=== PATIENT | male | born 1930 | race Caucasian/White ===

== ENCOUNTER 2018-03-13 16:00 | Emergency (ER) | payer OTHER, MEDICARE ==
--- NOTE | 2018-03-13 16:38 | PDOC ---
History of Present Illness - General History Source: Patient Exam Limitations: No Limitations - History of Present Illness Initial Comments: 03/13/18 17:04 The patient is a 87 year old male, with a significant PMH of HTN, who presents to the emergency department with low blood pressure today. The patient states that his physical therapist said his blood pressure was too low and suggested he go to the ER for further evaluation. The patient said he took his blood pressure medication and had breakfast in the morning. The patient notes mild weakness with ambulation and dizziness but denies any falls, trauma or LOC. The patient denies chest pain, shortness of breath and headache. Denies fever, chills, nausea, vomit, diarrhea and constipation. Allergies: NKDA Past surgical history: None reported Social history: None reported PCP: None reported <Ashkan Jimenez - Last Filed: 03/13/18 17:38> <Munir Rivera - Last Filed: 03/13/18 18:07> - General Chief Complaint: Lightheaded Stated Complaint: DIZZY POSSIBLE HYPOTENSION Time Seen by Provider: 03/13/18 16:22 Past History <Ashkan Jimenez - Last Filed: 03/13/18 17:38> - Travel Traveled outside of the country in the last 30 days: No Close contact w/someone who was outside of country & ill: No - Past Medical History Cardiac Disorders: Yes CHF: Yes Diabetes: Yes HTN: Yes Thyroid Disease: Yes Other medical history: CLL - Surgical History Other Surgical History: CABG x2 03/13/18 17:31 <Munir Rivera - Last Filed: 03/13/18 18:07> - Past Medical History Allergies/Adverse Reactions: Allergies Allergy/AdvReac Type Severity Reaction Status Date / Time No Known Allergies Allergy Unverified 03/13/18 16:02 Home Medications: Ambulatory Orders Aspirin 81 mg PO DAILY 03/13/18 Atorvastatin Ca [Lipitor] 40 mg PO DAILY 03/13/18 Brimonidine Tartrate [Alphagan 0.15% -] 1 drop OU HS 03/13/18 Bumetanide [Bumex -] 2 mg PO DAILY 03/13/18 Clopidogrel Bisulfate [Plavix] 75 mg PO DAILY 03/13/18 Dulaglutide [Trulicity] 1.5 mg SQ WEEKLY 03/13/18 Finasteride [Proscar] 5 mg PO DAILY 03/13/18 Levothyroxine [Synthroid -] 150 mcg PO DAILY 03/13/18 Lisinopril 10 mg PO DAILY 03/13/18 Memantine HCl/Donepezil HCl [Namzaric 28 mg-10 mg Capsule] 1 cap PO DAILY Multivitamins [Tab-A-Vit -] 1 tab PO DAILY 03/13/18 Potassium Chloride [Klor-Con 10] 10 meq PO BID 03/13/18 Sitagliptin Phosphate [Januvia] 100 mg PO DAILY 03/13/18 Tamsulosin HCl [Flomax] 0.4 mg PO BID 03/13/18 Review of Systems - Review of Systems Able to Perform ROS?: Yes Constitutional: No: Symptoms Reported, See HPI, Chills, Diaphoresis, Fever, Loss of Appetite, Malaise, Night Sweats, Weakness, Weight Stable, Unintentional Wgt. Loss, Unexplained wgt Loss, Other HEENTM: No: Symptoms Reported, See HPI, Eye Pain, Blurred Vision, Tearing, Recent change in vision, Double Vision, Cataracts, Ear Pain, Ocular Prothesis, Ear Discharge, Nose Pain, Nose Congestion, Tinnitus, Nose Bleeding, Hearing Loss , Throat Pain, Throat Swelling, Mouth Pain, Dental Problems, Difficulty Swallowing, Mouth Swelling, Other Cardiac (ROS): No: Symptoms Reported, See HPI, Chest Pain, Edema, Irregular Heart Rate, Lightheadedness, Palpitations, Syncope, Chest Tightness, Other Neurological: Yes: Weakness, Dizziness <Ahskan Jimenez - Last Filed: 03/13/18 17:38> *Physical Exam - Vital Signs Last Vital Signs Temp Pulse Resp BP Pulse Ox 97.5 F L 80 16 94/50 L 96 03/13/18 16:02 03/13/18 16:55 03/13/18 16:55 03/13/18 16:55 03/13/18 16:55 - Physical Exam General Appearance: Yes: Nourished, Appropriately Dressed, Apparent Distress Respiratory/Chest: positive: Crackles (bilateral) Cardiovascular: negative: Regular Rhythm, Regular Rate, S1, S2, Edema, JVD, Murmur, Bradycardia, Tachycardia, Diastolic Murmur, Systolic Murmur, Gallop/S3, Gallop/S4, Irregularly Irregular, Irregular, Other Gastrointestinal/Abdominal: positive: Distended (slightly ) <Ashkan Jimenez - Last Filed: 03/13/18 17:38> ED Treatment Course - LABORATORY CBC & Chemistry Diagram: 03/13/18 16:54 03/13/18 16:54 <Ashkan Jimenez - Last Filed: 03/13/18 17:38> - LABORATORY CBC & Chemistry Diagram: 03/13/18 16:54 03/13/18 16:54 <Munir Rivera - Last Filed: 03/13/18 18:07> Medical Decision Making - Medical Decision Making 03/13/18 17:[address] Appiah regarding patients case. Agreed to hold the lisinopril and discharge patient. <Ashkan Jimenez - Last Filed: 03/13/18 17:38> *DC/Admit/Observation/Transfer - Attestations Scribe Attestion: 03/13/18 17:09 Documentation prepared by Ashkan Jimenez, acting as medical technologist microbiology for Munir Rivera MD. <Ashkan Jimenez - Last Filed: 03/13/18 17:38> - Discharge Dispostion Decision to Admit order: No <Munir Rivera - Last Filed: 03/13/18 18:07> Diagnosis at time of Disposition: Hypotension Qualifiers: Hypotension type: hypotension due to drug Qualified Code(s): I95.2 - Hypotension due to drugs CHF (congestive heart failure) Qualifiers: Heart failure type: unspecified Heart failure chronicity: unspecified Qualified Code(s): I50.9 - Heart failure, unspecified - Discharge Dispostion Disposition: HOME Condition at time of disposition: Stable - Referrals Referrals: Jennifer Ruiz [Non Staff, Medical] - - Patient Instructions Printed Discharge Instructions: Combating Dizziness in Older Adults Additional Instructions: As discussed with PMD hold on the Lisinopril today , call the PMD in am forward the results of tests done here. Discuss further management of medications with your PMD
[2018-03-13 16:39] VITALS: TEMP 97.5; BMI 32.4
[2018-03-13 17:11] LABS: HEMATOCRIT 30.7 % (35.4-49); HEMOGLOBIN 10.5 GM/dl (11.7-16.9); MCH 30.6 pg (25.7-33.7); MCHC 34.1 g/dl (32.0-35.9); MEAN CELL VOLUME 89.7 fl (80-96); MEAN PLT VOLUME 8.9 fl (7.5-11.1); PLATELET COUNT 176 K/MM3 (134-434); RBC 3.42 M/mm3 (4.00-5.60); RDW 12.7 % (11.9-15.9)
[2018-03-13 17:19] LABS: INR 1.12 (0.82-1.09); PROTHROMBIN TIME (PATIENT) 12.5 SEC (10.2-13.0)
[2018-03-13 17:25] LABS: ALBUMIN 3.9 g/dl (3.5-5.0); ALK PHOS 51 U/L (32-92); ANION GAP 11 MMOL/L (8-16); BILIRUBIN,TOTAL 0.9 mg/dl (0.2-1.0); BLOOD UREA NITROGEN 52 mg/dl (7-18); CALCIUM 8.9 mg/dl (8.4-10.2); CHLORIDE 104 mmol/L (98-107); CO2 21 mmol/L (22-28); CREATININE 2.2 mg/dl (0.6-1.3); GLUCOSE,RANDOM 221 mg/dl (74-106); SGOT/AST 35 U/L (10-42); SGPT/ALT 25 U/L (10-40); SODIUM 136 mmol/L (136-145); TOT PROT 6.7 g/dl (6.4-8.3)
[2018-03-13 17:26] LABS: POTASSIUM 5.2 mmol/L (3.5-5.1)
[2018-03-13 17:31] VITALS: BP 101/47; PULSE 73
[2018-03-13 17:33] LABS: PLATELET ESTIMATE ADEQUATE
--- NOTE | 2018-03-14 09:23 | EKG ---
Test Reason : Blood Pressure : / mmHG Vent. Rate : 077 BPM Atrial Rate : 077 BPM P-R Int : 168 ms QRS Dur : 080 ms QT Int : 380 ms P-R-T Axes : 039 -16 113 degrees QTc Int : 430 ms NORMAL SINUS RHYTHM SEPTAL INFARCT , AGE UNDETERMINED T WAVE ABNORMALITY, CONSIDER LATERAL ISCHEMIA ABNORMAL ECG NO PREVIOUS ECGS AVAILABLE Confirmed by SHABANA WILLIAMSON MD ([id number]) on 03/14/2018 9:22:28 AM Referred By: MD TALAVERA Confirmed By:SHABANA WILLIAMSON MD
== END 2018-03-13 18:20 | disposition home or self-care (01) ==
LOC: FER 16:00
DX: I95.2 Hypotension due to drugs (principal); I50.9 Heart failure, unspecified; E07.9 Disorder of thyroid, unspecified; C91.10 Chronic lymphocytic leukemia of B-cell type not having achieved remission
CPT/HCPCS: 36415; 71045-TC-FY; 80053; 84484; 85025; 85610; 93005; 99285-25

== ENCOUNTER 2018-08-18 21:00 | Emergency (ER) | payer OTHER, MEDICARE ==
[2018-08-18 21:14] VITALS: BP 139/77; PULSE 86; TEMP 97.5; BMI 32.4
--- NOTE | 2018-08-18 21:15 | PDOC ---
History of Present Illness - General History Source: Patient, Family Exam Limitations: No Limitations - History of Present Illness Initial Comments: 08/18/18 21:34 The patient is an 88 year old male with a past medical history of HTN here today for evaluation of abdominal pain and constipation. The patient and patient s daughter reports that he has been trying to have a bowel movement for the past few days but has been unable to. He also reports abdominal pain. Patients daughter reports that he has been eating normally and eats a balanced diet. Patient denies headache, lightheadedness. Denies fever, chills. Denies chest pain, shortness of breath. Denies nausea, vomiting, diarrhea. Allergies: NKA PCP: Jennifer Ruiz <Bill Clark - Last Filed: 08/18/18 21:34> <Edgra Gonzalez - Last Filed: 08/19/18 03:39> - General Chief Complaint: Constipation Stated Complaint: CONSTIPATION Time Seen by Provider: 08/18/18 21:15 Past History <Bill Clark - Last Filed: 08/18/18 21:34> - Past Medical History Cancer: Yes (COLON) Cardiac Disorders: Yes CVA: No COPD: No CHF: Yes Diabetes: Yes HTN: Yes Hypercholesterolemia: Yes Thyroid Disease: Yes - Surgical History Cardiac Surgery: Yes (3 TRIPLE BYPASS,STENTS,COLON RESECTION) - Suicide/Smoking/Psychosocial Hx Smoking History: Former smoker Have you smoked in the past 12 months: No If you are a former smoker, when did you quit?: 1986 Information on smoking cessation initiated: No Hx Alcohol Use: Yes (RARE) Drug/Substance Use Hx: No Substance Use Type: Alcohol <Edgar Gonzalez - Last Filed: 08/19/18 03:39> - Past Medical History Allergies/Adverse Reactions: Allergies Allergy/AdvReac Type Severity Reaction Status Date / Time No Known Allergies Allergy Verified 08/18/18 21:29 Home Medications: Ambulatory Orders Aspirin 81 mg PO DAILY 03/13/18 Atorvastatin Ca [Lipitor] 40 mg PO DAILY 03/13/18 Brimonidine Tartrate [Alphagan 0.15% -] 1 drop OU HS 03/13/18 Bumetanide [Bumex -] 2 mg PO DAILY 03/13/18 Clopidogrel Bisulfate [Plavix] 75 mg PO DAILY 03/13/18 Dulaglutide [Trulicity] 1.5 mg SQ WEEKLY 03/13/18 Finasteride [Proscar] 5 mg PO DAILY 03/13/18 Levothyroxine [Synthroid -] 150 mcg PO DAILY 03/13/18 Memantine HCl/Donepezil HCl [Namzaric 28 mg-10 mg Capsule] 1 cap PO DAILY Multivitamins [Tab-A-Vit -] 1 tab PO DAILY 03/13/18 Potassium Chloride [Klor-Con 10] 10 meq PO BID 03/13/18 Sitagliptin Phosphate [Januvia] 100 mg PO DAILY 03/13/18 Tamsulosin HCl [Flomax] 0.4 mg PO BID 03/13/18 Magnesium Citrate [Citroma -] 195 ml PO DAILY #2 bottle 08/18/18 Review of Systems - Review of Systems Able to Perform ROS?: Yes Comments:: 08/18/18 21:34 GENERAL/CONSTITUTIONAL: No fever or chills. No weakness. HEAD, EYES, EARS, NOSE AND THROAT: No change in vision. No ear pain or discharge. No sore throat. CARDIOVASCULAR: No chest pain or shortness of breath. RESPIRATORY: No cough, wheezing, or hemoptysis. GASTROINTESTINAL: +constipation. +abdominal pain. No nausea, vomiting, diarrhea. GENITOURINARY: No dysuria, frequency, or change in urination. MUSCULOSKELETAL: No joint or muscle swelling or pain. No neck or back pain. SKIN: No rash NEUROLOGIC: No headache, vertigo, loss of consciousness, or change in strength/ sensation. ENDOCRINE: No increased thirst. No abnormal weight change. HEMATOLOGIC/LYMPHATIC: No anemia, easy bleeding, or history of blood clots. ALLERGIC/IMMUNOLOGIC: No hives or skin allergy. <Bill Clark - Last Filed: 08/18/18 21:34> *Physical Exam - Vital Signs Last Vital Signs Temp Pulse Resp BP Pulse Ox 97.5 F L 86 18 139/77 97 08/18/18 21:03 08/18/18 21:03 08/18/18 21:03 08/18/18 21:03 08/18/18 21:03 - Physical Exam Comments: 08/18/18 21:35 GENERAL: Awake, alert, and fully oriented, in no acute distress HEAD: No signs of trauma EYES: PERRLA, EOMI, sclera anicteric, conjunctiva clear ENT: Auricles normal inspection, hearing grossly normal, nares patent, oropharynx clear without exudates. Moist mucosa NECK: Normal ROM, supple, no lymphadenopathy, JVD, or masses LUNGS: Breath sounds equal, clear to auscultation bilaterally. No wheezes, and no crackles HEART: Regular rate and rhythm, normal S1 and S2, no murmurs, rubs or gallops ABDOMEN: +diffuse abdominal tenderness. Soft, normoactive bowel sounds. No guarding, no rebound. No masses EXTREMITIES: Normal range of motion, no edema. No clubbing or cyanosis. No cords, erythema, or tenderness NEUROLOGICAL: Cranial nerves II through XII grossly intact. Normal speech, normal gait SKIN: Warm, Dry, normal turgor, no rashes or lesions noted. <Bill Clark - Last Filed: 08/18/18 21:34> - Vital Signs Last Vital Signs Temp Pulse Resp BP Pulse Ox 97.5 F L 86 18 139/77 97 08/18/18 21:03 08/18/18 21:03 08/18/18 21:03 08/18/18 21:03 08/18/18 21:03 <Edgar Gonzalez - Last Filed: 08/19/18 03:39> Moderate Sedation - Procedure Monitoring Vital Signs: Procedure Monitoring Vital Signs Temperature 97.5 F L 08/18/18 21:03 Pulse Rate 86 08/18/18 21:03 Respiratory Rate 18 08/18/18 21:03 Blood Pressure 139/77 08/18/18 21:03 O2 Sat by Pulse Oximetry (%) 97 08/18/18 21:03 <Bill Clark - Last Filed: 08/18/18 21:34> - Procedure Monitoring Vital Signs: Procedure Monitoring Vital Signs Temperature 97.5 F L 08/18/18 21:03 Pulse Rate 86 08/18/18 21:03 Respiratory Rate 18 08/18/18 21:03 Blood Pressure 139/77 08/18/18 21:03 O2 Sat by Pulse Oximetry (%) 97 08/18/18 21:03 <Edgar Gonzalez - Last Filed: 08/19/18 03:39> Medical Decision Making - Medical Decision Making 08/19/18 03:38 plain films--large amount of stool repeat abd exam: none tender a/p constipation stool regimen <Edgar Gonzalez - Last Filed: 08/19/18 03:39> *DC/Admit/Observation/Transfer - Attestations Scribe Attestion: 08/18/18 21:35 Documentation prepared by KEISHA Duarte, acting as medical underwriter for Edgar Gonzalez MD. <Bill Clark - Last Filed: 08/18/18 21:34> <Edgar Gonzalez - Last Filed: 08/19/18 03:39> Diagnosis at time of Disposition: Constipation - Discharge Dispostion Disposition: HOME Condition at time of disposition: Good - Prescriptions Prescriptions: Magnesium Citrate [Citroma -] 195 ml PO DAILY #2 bottle - Referrals Referrals: Jennifer Ruiz [Primary Care Provider] - Call tomorrow - Patient Instructions Printed Discharge Instructions: DI for Constipation - Post Discharge Activity
[2018-08-18] MEDS ORDERED: LACTULOSE 20 GM/30 ML UDC (FOR ORAL USE ONLY) PO ONE (22:21)
[2018-08-18] MEDS ORDERED: LACTULOSE 20 GM/30 ML UDC (FOR ORAL USE ONLY) ONE (22:30)
[2018-08-18 23:35] LABS: EPI CELLS FEW /HPF; URINE WBC >100 /hpf (0-5)
== END 2018-08-18 23:00 | disposition home or self-care (01) ==
LOC: FER 21:00
DX: K59.00 Constipation, unspecified (principal); Z87.891 Personal history of nicotine dependence; Z95.5 Presence of coronary angioplasty implant and graft; E07.9 Disorder of thyroid, unspecified; E78.00 Pure hypercholesterolemia, unspecified; E11.9 Type 2 diabetes mellitus without complications; I50.9 Heart failure, unspecified; Z85.038 Personal history of other malignant neoplasm of large intestine
CPT/HCPCS: 74019-TC-FY; 81015; 99282-25

== ENCOUNTER 2020-10-18 10:48 | Inpatient (IN) | payer OTHER, MEDICARE ==
[2020-10-18 13:00] LABS: BASO % 0.4 % (0-2.0); EOS % 1.5 % (0-4.5); HEMATOCRIT 36.6 % (35.4-49); LYMPH % 75.2 % (8-40); MCH 28.2 pg (25.7-33.7); MCHC 32.7 g/dl (32.0-35.9); MEAN CELL VOLUME 86.2 fl (80-96); MEAN PLT VOLUME 8.2 fl (7.5-11.1); NEUT % 19.9 % (42.8-82.8); PLATELET COUNT 307 K/MM3 (134-434); RBC 4.25 M/mm3 (4.00-5.60); RDW 15.1 % (11.9-15.9)
[2020-10-18 13:04] LABS: EPI CELLS 4 /uL (0-25.1); HYALINE CASTS 0 /uL (0-3.1); PH,URINE 5.5 (5.0-8.0); URINE APPEARANCE CLEAR; URINE BACTERIA 7 /uL (0-1359); URINE BILIRUBIN NEGATIVE (NEGATIVE); URINE COLOR YELLOW; URINE GLUCOSE (UA) NEGATIVE (NEGATIVE); URINE KETONE NEGATIVE (NEGATIVE); URINE LEUK ESTERASE NEGATIVE (NEGATIVE); URINE NITRITE NEGATIVE (NEGATIVE); URINE PROTEIN 1+ (NEGATIVE); URINE RBC 39 /uL (0-23.9); URINE UROBILINOGEN 0.2 mg/dL (0.2-1.0); URINE WBC 17 /uL (0-25.8)
[2020-10-18 13:09] LABS: INR 1.13 (0.83-1.09); PROTHROMBIN TIME (PATIENT) 13.8 SEC (9.7-13.0)
[2020-10-18 13:21] LABS: WHITE BLOOD COUNT 51.1 K/mm3 (4.0-10.0)
[2020-10-18 13:22] LABS: ALBUMIN 3.3 g/dl (3.4-5.0); CALCIUM 8.9 mg/dL (8.5-10.1)
[2020-10-18 13:23] LABS: BLOOD UREA NITROGEN 20.3 mg/dL (7-18); MAGNESIUM 2.3 mg/dL (1.8-2.4)
[2020-10-18 13:26] LABS: CREATININE 1.3 mg/dL (0.55-1.3)
[2020-10-18 13:27] LABS: BILIRUBIN,TOTAL 0.5 mg/dL (0.2-1); TOT PROT 7.4 g/dl (6.4-8.2)
[2020-10-18 14:46] LABS: ANISOCYTOSIS 0; MACROCYTOSIS 0; PLATELET ESTIMATE NORMAL
[2020-10-18] MEDS: INSULIN SLIDING SCALE (NOVOLOG) 1 VIAL SQ SCH (21:53)
[2020-10-18] MEDS: DONEPEZIL HCL 10 MG TABLET (FP) PO SCH (22:50)
[2020-10-18] MEDS: MEMANTINE HCL 10 MG TABLET (FP) PO SCH (22:50)
[2020-10-18] MEDS: TAMSULOSIN HCL 0.4 MG CAP PO SCH (22:50)
[2020-10-18] MEDS: ATORVASTATIN CA 40 MG TABLET (FP) PO SCH (22:50)
[2020-10-19] MEDS: LEVOTHYROXINE NA 150 MCG TABLET PO SCH (06:24)
[2020-10-19] MEDS: INSULIN SLIDING SCALE (NOVOLOG) 1 VIAL SQ SCH ×4 (06:26→22:32)
[2020-10-19] MEDS: TAMSULOSIN HCL 0.4 MG CAP PO SCH ×2 (08:27→22:29)
[2020-10-19 09:27] LABS: BASO % 0.2 % (0-2.0); EOS % 0.9 % (0-4.5); HEMOGLOBIN 11.3 GM/dL (11.7-16.9); LYMPH % 80.2 % (8-40); MCH 27.7 pg (25.7-33.7); MCHC 32.4 g/dl (32.0-35.9); MEAN CELL VOLUME 85.6 fl (80-96); MEAN PLT VOLUME 8.5 fl (7.5-11.1); MONO % 2.1 % (3.8-10.2); NEUT % 16.6 % (42.8-82.8); PLATELET COUNT 324 K/MM3 (134-434); RBC 4.09 M/mm3 (4.00-5.60); RDW 15.1 % (11.9-15.9)
[2020-10-19] MEDS ORDERED: PT OWN MED DRAWER 7, Y5N ONE (09:28)
[2020-10-19 09:32] LABS: WHITE BLOOD COUNT 55.1 K/mm3 (4.0-10.0)
[2020-10-19] MEDS: MEMANTINE HCL 10 MG TABLET (FP) PO SCH ×2 (09:34→22:26)
[2020-10-19] MEDS: ASPIRIN 81 MG CHEWABLE TABLETS PO SCH (09:34)
[2020-10-19] MEDS: FINASTERIDE 5 MG TABLET (FP) PO SCH (09:35)
[2020-10-19] MEDS: MULTIVITAMINS (DAILY MVI) TABLET (FP) PO SCH (09:35)
[2020-10-19] MEDS: CLOPIDOGREL BISULFATE 75 MG TABLET (FP) PO SCH (09:35)
[2020-10-19] MEDS: ENOXAPARIN NA (PORCINE) 40 MG/0.4 ML DISP.SYRIN SQ SCH (09:46)
[2020-10-19 09:48] LABS: BILIRUBIN,TOTAL 0.7 mg/dL (0.2-1); CREATININE 1.1 mg/dL (0.55-1.3); PHOSPHOROUS 3.5 mg/dL (2.5-4.9)
[2020-10-19 09:49] LABS: ALBUMIN 3.1 g/dl (3.4-5.0); BLOOD UREA NITROGEN 22.9 mg/dL (7-18); CALCIUM 8.9 mg/dL (8.5-10.1); MAGNESIUM 2.1 mg/dL (1.8-2.4)
[2020-10-19] MEDS ORDERED: PATIENT'S OWN MEDICATION (NON-FORMULARY) (Memantine Hcl/Donepezil Hcl [Namzaric 28 Mg-10 M PO SCH (10:00)
[2020-10-19 10:31] LABS: ANISOCYTOSIS 1+; MACROCYTOSIS 0; OVALOCYTE 1+; PLATELET ESTIMATE NORMAL
[2020-10-19 10:53] LABS: URIC ACID 8.4 mg/dL (2.6-7.2)
[2020-10-19] MEDS: BUMETANIDE 1 MG TABLET PO SCH (10:53)
[2020-10-19] MEDS: ATORVASTATIN CA 40 MG TABLET (FP) PO SCH (22:26)
[2020-10-19] MEDS: DONEPEZIL HCL 10 MG TABLET (FP) PO SCH (22:26)
[2020-10-20] MEDS: INSULIN SLIDING SCALE (NOVOLOG) 1 VIAL SQ SCH ×4 (06:09→22:26)
[2020-10-20] MEDS: LEVOTHYROXINE NA 150 MCG TABLET PO SCH (06:18)
[2020-10-20] MEDS: TAMSULOSIN HCL 0.4 MG CAP PO SCH ×2 (08:10→21:43)
[2020-10-20] MEDS ORDERED: PT OWN MED DRAWER 7, Y5N ONE (09:38)
[2020-10-20] MEDS: MULTIVITAMINS (DAILY MVI) TABLET (FP) PO SCH (09:40)
[2020-10-20] MEDS: FINASTERIDE 5 MG TABLET (FP) PO SCH (09:40)
[2020-10-20] MEDS: CLOPIDOGREL BISULFATE 75 MG TABLET (FP) PO SCH (09:40)
[2020-10-20] MEDS: ASPIRIN 81 MG CHEWABLE TABLETS PO SCH (09:40)
[2020-10-20] MEDS: BUMETANIDE 1 MG TABLET PO SCH (09:40)
[2020-10-20] MEDS: MEMANTINE HCL 10 MG TABLET (FP) PO SCH ×2 (09:40→21:42)
[2020-10-20] MEDS: ENOXAPARIN NA (PORCINE) 40 MG/0.4 ML DISP.SYRIN SQ SCH (09:48)
[2020-10-20] MEDS: COLLAGENASE CLOSTRIDIUM HIST. 30 GRAMS TUBE TP SCH ×2 (10:10→12:07)
[2020-10-20 13:36] LABS: BASO % 0.3 % (0-2.0); EOS % 0.8 % (0-4.5); HEMATOCRIT 45.9 % (35.4-49); HEMOGLOBIN 14.9 GM/dL (11.7-16.9); LYMPH % 79.7 % (8-40); MCH 28.1 pg (25.7-33.7); MCHC 32.5 g/dl (32.0-35.9); MEAN CELL VOLUME 86.4 fl (80-96); MEAN PLT VOLUME 8.1 fl (7.5-11.1); MONO % 2.5 % (3.8-10.2); NEUT % 16.7 % (42.8-82.8); PLATELET COUNT 319 K/MM3 (134-434); RBC 5.31 M/mm3 (4.00-5.60); RDW 15.2 % (11.9-15.9)
[2020-10-20 13:49] LABS: WHITE BLOOD COUNT 61.5 K/mm3 (4.0-10.0)
[2020-10-20 14:53] LABS: ANISOCYTOSIS 0; MACROCYTOSIS 0; PLATELET ESTIMATE NORMAL
[2020-10-20 14:59] LABS: ALBUMIN 3.5 g/dl (3.4-5.0); CALCIUM 9.4 mg/dL (8.5-10.1)
[2020-10-20 15:00] LABS: BLOOD UREA NITROGEN 33.4 mg/dL (7-18); MAGNESIUM 2.3 mg/dL (1.8-2.4)
[2020-10-20 15:03] LABS: CREATININE 1.6 mg/dL (0.55-1.3)
[2020-10-20 15:04] LABS: BILIRUBIN,TOTAL 0.5 mg/dL (0.2-1); TOT PROT 7.8 g/dl (6.4-8.2)
[2020-10-20] MEDS ORDERED: ACETAMINOPHEN WITH CODEINE 300MG/30MG TABLET PO PRN (17:47)
[2020-10-20] MEDS ORDERED: SODIUM CHLORIDE 1,000 ML IV SCH (18:15)
[2020-10-20] MEDS: DONEPEZIL HCL 10 MG TABLET (FP) PO SCH (21:41)
[2020-10-20] MEDS: LORazepam 2 MG/ML SDV VIAL IVPUSH ONE ×2 (21:42→23:54)
[2020-10-20] MEDS: ATORVASTATIN CA 40 MG TABLET (FP) PO SCH (21:42)
[2020-10-20] MEDS: QUEtiapine FUMARATE 50 MG TABLET PO SCH (21:42)
[2020-10-21] MEDS: INSULIN SLIDING SCALE (NOVOLOG) 1 VIAL SQ SCH ×4 (06:01→21:40)
[2020-10-21] MEDS: LEVOTHYROXINE NA 150 MCG TABLET PO SCH (06:02)
[2020-10-21] MEDS ORDERED: PT OWN MED DRAWER 7, Y5N ONE (10:24)
[2020-10-21] MEDS: ENOXAPARIN NA (PORCINE) 40 MG/0.4 ML DISP.SYRIN SQ SCH (10:28)
[2020-10-21] MEDS: ASPIRIN 81 MG CHEWABLE TABLETS PO SCH (10:28)
[2020-10-21] MEDS: MULTIVITAMINS (DAILY MVI) TABLET (FP) PO SCH (10:28)
[2020-10-21] MEDS: TAMSULOSIN HCL 0.4 MG CAP PO SCH ×2 (10:29→21:44)
[2020-10-21] MEDS: FINASTERIDE 5 MG TABLET (FP) PO SCH (10:29)
[2020-10-21] MEDS: BUMETANIDE 1 MG TABLET PO SCH (10:29)
[2020-10-21] MEDS: CLOPIDOGREL BISULFATE 75 MG TABLET (FP) PO SCH (10:29)
[2020-10-21] MEDS: MEMANTINE HCL 10 MG TABLET (FP) PO SCH ×2 (10:29→21:40)
[2020-10-21] MEDS: COLLAGENASE CLOSTRIDIUM HIST. 30 GRAMS TUBE TP SCH (10:34)
[2020-10-21] MEDS: DONEPEZIL HCL 10 MG TABLET (FP) PO SCH (21:39)
[2020-10-21] MEDS: QUEtiapine FUMARATE 50 MG TABLET PO SCH (21:40)
[2020-10-21] MEDS: ATORVASTATIN CA 40 MG TABLET (FP) PO SCH (21:40)
[2020-10-22] VITALS: BMI 24.3
[2020-10-22] MEDS: INSULIN SLIDING SCALE (NOVOLOG) 1 VIAL SQ SCH (06:18)
[2020-10-22] MEDS: LEVOTHYROXINE NA 150 MCG TABLET PO SCH (06:18)
[2020-10-22] MEDS ORDERED: PT OWN MED DRAWER 7, Y5N ONE (09:23)
[2020-10-22] MEDS: TAMSULOSIN HCL 0.4 MG CAP PO SCH (09:26)
[2020-10-22] MEDS: FINASTERIDE 5 MG TABLET (FP) PO SCH (09:26)
[2020-10-22] MEDS: MEMANTINE HCL 10 MG TABLET (FP) PO SCH (09:27)
[2020-10-22] MEDS: BUMETANIDE 1 MG TABLET PO SCH (09:27)
[2020-10-22] MEDS: CLOPIDOGREL BISULFATE 75 MG TABLET (FP) PO SCH (09:27)
[2020-10-22] MEDS: ASPIRIN 81 MG CHEWABLE TABLETS PO SCH (09:27)
[2020-10-22] MEDS: MULTIVITAMINS (DAILY MVI) TABLET (FP) PO SCH (09:27)
[2020-10-22] MEDS: ENOXAPARIN NA (PORCINE) 40 MG/0.4 ML DISP.SYRIN SQ SCH (09:28)
[2020-10-22] MEDS: COLLAGENASE CLOSTRIDIUM HIST. 30 GRAMS TUBE TP SCH (09:38)
[2020-10-22 10:52] VITALS: BP 107/59; PULSE 78; TEMP 97.7
== END 2020-10-22 12:43 | DRG 92 ==
LOC: JER 10:48 → JERBED 15:41 → J6S 20:16
PROVIDERS: ADMIT Internal Medicine; ATTEND Nurse Practitioner Family
DX: R29.810 Facial weakness (principal); C91.10 Chronic lymphocytic leukemia of B-cell type not having achieved remission; F02.81 Dementia in other diseases classified elsewhere, unspecified severity, with behavioral disturbance; M79.604 Pain in right leg; N40.0 Benign prostatic hyperplasia without lower urinary tract symptoms; E78.5 Hyperlipidemia, unspecified; E11.9 Type 2 diabetes mellitus without complications; I25.10 Atherosclerotic heart disease of native coronary artery without angina pectoris; G30.9 Alzheimer's disease, unspecified; D64.9 Anemia, unspecified; E03.9 Hypothyroidism, unspecified; J84.10 Pulmonary fibrosis, unspecified; M79.89 Other specified soft tissue disorders; G63 Polyneuropathy in diseases classified elsewhere; E78.00 Pure hypercholesterolemia, unspecified; Z95.1 Presence of aortocoronary bypass graft; Z85.038 Personal history of other malignant neoplasm of large intestine; Z95.5 Presence of coronary angioplasty implant and graft; Z74.01 Bed confinement status
CPT/HCPCS: 36415; 70450-TC; 71045-TC-FY; 72131-TC; 73130-TC-LT-FY; 73552-TC-RT-FY; 73564-TC-RT-FY; 80053; 81003; 82962; 83036; 83605; 83615; 83735; 84100; 84443; 84550; 85025; 85610; 85730; 87040; 87086; 93005; 93010; 93970-TC; 93971; 97162-GP; 99285-25; C9803; U0003; U0005

== ENCOUNTER 2022-03-08 08:47 | Emergency (ER) | payer OTHER, MEDICARE ==
[2022-03-08 09:21] VITALS: BP 127/63; PULSE 52; RESP 18; TEMP 96.6; BMI 25.6
[2022-03-08 10:59] LABS: HEMATOCRIT 30.6 % (35.4-49); HEMOGLOBIN 9.5 GM/dL (11.7-16.9); MCHC 31.1 g/dl (32.0-35.9); MEAN CELL VOLUME 96.4 fl (80-96); MEAN PLT VOLUME 9.3 fl (7.5-11.1); PLATELET COUNT 134 10^3/uL (134-434); RBC 3.17 M/mm3 (4.00-5.60); RDW 16.2 % (11.9-15.9)
[2022-03-08 11:06] LABS: INR 1.09 (0.83-1.09); PROTHROMBIN TIME (PATIENT) 12.5 SEC (9.7-13.0)
[2022-03-08 11:19] LABS: ALBUMIN 3.1 g/dl (3.4-5.0); BLOOD UREA NITROGEN 39.7 mg/dL (7-18)
[2022-03-08 11:20] LABS: CALCIUM 8.7 mg/dL (8.5-10.1)
[2022-03-08 11:21] LABS: CREATININE 1.3 mg/dL (0.55-1.3)
[2022-03-08 11:23] LABS: BILIRUBIN,TOTAL 0.7 mg/dL (0.2-1)
[2022-03-08 11:24] LABS: TOT PROT 6.4 g/dl (6.4-8.2)
[2022-03-08 12:54] LABS: ANISOCYTOSIS 0; MACROCYTOSIS 0
== END 2022-03-08 16:54 ==
LOC: JER 08:47
DX: U07.1 COVID-19 (principal)
CPT/HCPCS: 0241U-QW; 36415; 71250-TC; 80053; 84443; 84484; 85025; 85610; 93005; 93010; 99285-25